=== PATIENT | female | born 1970 | race Caucasian/White ===

== ENCOUNTER 2021-05-20 21:51 | Emergency (ER) | payer OTHER ==
[2021-05-20 22:01] VITALS: BP 119/70; PULSE 62; TEMP 98.2; BMI 28.3
[2021-05-20] MEDS ORDERED: ACETAMINOPHEN 1000 MG/100 ML VIAL (NON FORMULARY) IVPB ONE (23:00)
[2021-05-20] MEDS ORDERED: ACETAMINOPHEN 325 MG TABLET (FP) PO ONE (23:04)
[2021-05-20] MEDS ORDERED: ACETAMINOPHEN 325 MG TABLET (FP) ONE (23:07)
== END 2021-05-21 00:10 | disposition home or self-care (01) ==
LOC: JER 21:51
PROC: 3E0333Z Introduction of Anti-inflammatory into Peripheral Vein, Percutaneous Approach (ICD-10-PCS; principal; 2021-05-20)
DX: R10.31 Right lower quadrant pain (principal); V49.10XA Passenger injured in collision with unspecified motor vehicles in nontraffic accident, initial encounter
CPT/HCPCS: 99284-25